=== PATIENT | female | born 1945 | race Caucasian/White ===

== ENCOUNTER → 2016-12-26 | Outpatient (CLI) | payer MEDICARE, BC ==
[~2016-12-26] MED LIST: NORCO 325 MG-51 TAB PO; ZOFRAN ODT4 MG PO
== END ==
LOC: MHCPAIN 10:52
DX: G89.29 Other chronic pain (principal); M50.90 Cervical disc disorder, unspecified, unspecified cervical region
CPT/HCPCS: G0463

== ENCOUNTER → 2017-02-13 | Outpatient (CLI) | payer MEDICARE, BC | LOC: MHCPAIN 12:59 | DX: G89.29 Other chronic pain (principal); M50.30 Other cervical disc degeneration, unspecified cervical region | CPT/HCPCS: G0463 ==

== ENCOUNTER → 2017-02-15 | Outpatient (CLI) | payer MEDICARE, BC | LOC: MHCPAIN 07:37 | DX: M50.30 Other cervical disc degeneration, unspecified cervical region (principal) | CPT/HCPCS: J1100 ==

== ENCOUNTER → 2017-03-05 | Outpatient (CLI) | payer MEDICARE, BC | LOC: MHCPAIN 09:30 | DX: G89.29 Other chronic pain (principal); M50.90 Cervical disc disorder, unspecified, unspecified cervical region | CPT/HCPCS: G0463 ==